=== PATIENT | female | born 1935 | race Caucasian/White ===

== ENCOUNTER 2019-05-20 10:43 | Emergency (ER) | payer OTHER ==
[2019-05-20] MEDS ORDERED: SODIUM CHLORIDE 0.9% 1L BAG IV* (10:55)
[2019-05-20 11:21] LABS: ADD MAN DIFF? NO
[2019-05-20 11:24] LABS: AADO2 Arterial 193.7 mmHg (7.0-24.0); Allen Test ACCEPTAB; Arterial Base Excess 11.9 mmol/L (-3.0-3); Arterial Blood Gas Oxygen Sat 99.4 mmHG (95.0-100.0); Arterial COHb 0.7 % (0.0-3.0); Arterial Fraction of Oxyhgb 98.6 % (93.0-99.0); Arterial HCO3 39.4 mmol/L (22.0-26.0); Arterial MetHb 0.1 % (0.0-1.5); Arterial pCO2 64.7 mmhg (35-45); MODE MASK - NRB; Site Right Radial
[2019-05-20 11:29] LABS: WHITE BLOOD COUNT 12.7 10^3/ul (4.8-10.8)
[2019-05-20 11:29] LABS: BASOPHIL # 0.1 10^3/ul (0.0-0.1); BASOPHILS % 0.4 % (0.0-2.0); EOSINOPHILS # 0.1 10^3/ul (0.0-0.5); EOSINOPHILS % 0.9 % (0.0-7.0); HEMATOCRIT 40.5 % (37.0-47.0); LYMPHOCYTES # 0.7 10^3/ul (0.8-2.9); LYMPHOCYTES % 5.6 % (15.0-51.0); MEAN CORPUSCULAR HEMOGLOBIN 31.3 pg (29.0-33.0); MEAN CORPUSCULAR HGB CONC 32.1 g/dl (32.0-37.0); MEAN CORPUSCULAR VOLUME 97.4 fl (82.0-101.0); MEAN PLATELET VOLUME 11.3 fl (7.4-10.4); MONOCYTE # 0.9 10^3/ul (0.3-0.9); MONOCYTES % 7.2 % (0.0-11.0); NEUTROPHIL # 10.8 10^3/ul (1.6-7.5); NEUTROPHILS % 85.4 % (39.0-77.0); PLATELET COUNT 211 10^3/UL (140-415); RED BLOOD COUNT 4.16 10^6/ul (4.20-5.40); RED CELL DISTRIBUTION WIDTH 14.9 % (11.5-14.5)
[2019-05-20] MEDS: IPRATROPIUM (NEB) 0.5 MG/2.5 ML AMP INH (11:30)
[2019-05-20] MEDS: ALBUTEROL 0.5% (NEB) 2.5 MG/0.5 ML AMP INH (11:30)
[2019-05-20 11:43] LABS: ALANINE AMINOTRANSFERASE 61 IU/L (13-69); ALBUMIN 3.6 g/dl (3.3-4.9); ALBUMIN/GLOBULIN RATIO 1.05; ALKALINE PHOSPHATASE 101 IU/L (42-121); ASPARTATE AMINO TRANSFERASE 38 IU/L (15-46); BLOOD UREA NITROGEN 16 mg/dl (7-20); C-REACTIVE PROTEIN 4.9 mg/dl (0.0-0.9); CALCIUM 9.6 mg/dl (8.4-10.2); CHLORIDE 95 mmol/L (97-110); GLUCOSE 111 mg/dl (70-220); LIPASE 21 U/L (23-300); POTASSIUM 4.1 mmol/L (3.5-5.1); SODIUM 138 mmol/L (135-144)
[2019-05-20 11:45] LABS: INR 0.94; PROTIME 12.7 Sec (11.9-14.9)
[2019-05-20 11:46] LABS: PARTIAL THROMBOPLASTIN TIME 27.4 Sec (23.0-35.0)
[2019-05-20 11:54] LABS: B-TYPE NATRIURETIC PEPTIDE 1310 PG/ML (0-450); TROPONIN-I < 0.012 ng/ml (0.000-0.120)
[2019-05-20] MEDS: METHYLPREDNISOLONE 125 MG INJ IV (12:00)
[2019-05-20] MEDS: IBUPROFEN 600 MG TAB PO (12:00)
[2019-05-20] MEDS: ENALAPRILAT 1.25 MG INJ IV (12:00)
[2019-05-20 12:04] LABS: ANION GAP 9 (5-13)
[2019-05-20 12:09] LABS: CARBON DIOXIDE 34 mmol/L (21-31)
[2019-05-20 12:13] LABS: LACTIC ACID 1.2 mmol/L (0.5-2.0)
[2019-05-20] MEDS: CEFEPIME 1GM/50 ML (PMX) 50 ML IVPB (12:15)
[2019-05-20] MEDS: FUROSEMIDE 40 MG INJ IV (12:50)
[2019-05-20 13:51] LABS: AADO2 Arterial 47.5 mmHg (7.0-24.0); Allen Test ACCEPTAB; Arterial Base Excess 10.7 mmol/L (-3.0-3); Arterial COHb 0.7 % (0.0-3.0); Arterial Fraction of Oxyhgb 93.2 % (93.0-99.0); Arterial HCO3 38.9 mmol/L (22.0-26.0); Arterial MetHb 0.2 % (0.0-1.5); Arterial pCO2 69.5 mmhg (35-45); MODE NASAL CANNULA; Site Right Radial
== END 2019-05-20 14:21 | disposition short-term general hospital (02) ==
LOC: E/R 10:43
DX: J44.1 Chronic obstructive pulmonary disease with (acute) exacerbation (principal); J18.1 Lobar pneumonia, unspecified organism; I50.41 Acute combined systolic (congestive) and diastolic (congestive) heart failure; E66.9 Obesity, unspecified; I10 Essential (primary) hypertension
CPT/HCPCS: 36600; 71045; 80053; 82803; 83605; 83690; 83880; 84484; 85025; 85610; 85730; 86140; 86850; 86900; 86901; 87040-91; 87400; 93005; 94644; 96374; 96375; 99285-25

== ENCOUNTER 2019-07-07 08:51 | Emergency (ER) | payer OTHER ==
[2019-07-07 09:41] LABS: ADD MAN DIFF? NO
[2019-07-07 09:43] LABS: WHITE BLOOD COUNT 12.6 10^3/ul (4.8-10.8)
[2019-07-07 09:43] LABS: BASOPHILS % 0.3 % (0.0-2.0); EOSINOPHILS # 0.3 10^3/ul (0.0-0.5); EOSINOPHILS % 2.3 % (0.0-7.0); HEMATOCRIT 38.6 % (37.0-47.0); HEMOGLOBIN 12.4 g/dl (12.0-16.0); LYMPHOCYTES % 7.8 % (15.0-51.0); MEAN CORPUSCULAR HEMOGLOBIN 31.9 pg (29.0-33.0); MEAN CORPUSCULAR HGB CONC 32.1 g/dl (32.0-37.0); MEAN CORPUSCULAR VOLUME 99.2 fl (82.0-101.0); MEAN PLATELET VOLUME 11.5 fl (7.4-10.4); NEUTROPHIL # 10.2 10^3/ul (1.6-7.5); NEUTROPHILS % 81.2 % (39.0-77.0); PLATELET COUNT 228 10^3/UL (140-415); RED BLOOD COUNT 3.89 10^6/ul (4.20-5.40); RED CELL DISTRIBUTION WIDTH 14.1 % (11.5-14.5)
[2019-07-07] MEDS: predniSONE 20 MG TAB PO (09:43)
[2019-07-07 10:03] LABS: ANION GAP 2 (5-13); BLOOD UREA NITROGEN 18 mg/dl (7-20); CALCIUM 9.5 mg/dl (8.4-10.2); CARBON DIOXIDE 38 mmol/L (21-31); CHLORIDE 95 mmol/L (97-110); CREATININE 0.53 mg/dl (0.44-1.00); GLUCOSE 129 mg/dl (70-220); INR 1.01; POTASSIUM 3.6 mmol/L (3.5-5.1); PROTIME 13.4 Sec (11.9-14.9); SODIUM 135 mmol/L (135-144)
[2019-07-07 10:04] LABS: PARTIAL THROMBOPLASTIN TIME 32.2 Sec (23.0-35.0)
[2019-07-07] MEDS: ALBUTEROL 0.5% (NEB) 2.5 MG/0.5 ML AMP INH (10:06)
[2019-07-07 10:14] LABS: TROPONIN-I < 0.012 ng/ml (0.000-0.120)
[2019-07-07] MEDS: FUROSEMIDE 20 MG INJ IV (11:17)
[2019-07-07 11:22] LABS: LACTIC ACID 1.1 mmol/L (0.5-2.0)
[2019-07-07] MEDS ORDERED: ACETAMINOPHEN 325 MG TAB (11:26)
[2019-07-07 11:30] LABS: B-TYPE NATRIURETIC PEPTIDE 641 PG/ML (0-450)
[2019-07-07] MEDS: ACETAMINOPHEN 325 MG TAB PO (11:40)
== END 2019-07-07 13:29 | disposition home or self-care (01) ==
LOC: E/R 08:51
DX: J45.901 Unspecified asthma with (acute) exacerbation (principal); I10 Essential (primary) hypertension; R06.02 Shortness of breath; Z91.040 Latex allergy status; Z79.82 Long term (current) use of aspirin
CPT/HCPCS: 36415; 71045; 80048; 83605; 83880; 84484; 85025; 85610; 85730; 93005; 94664; 99285-25